=== PATIENT | male | born 1990 | race Hispanic/Latino ===

== ENCOUNTER 2019-01-30 21:25 | Emergency (ER) | payer OTHER ==
[2019-01-30] MEDS ORDERED: ACYCLOVIR 400 MG TABLET ONE (22:53)
--- NOTE | 2019-01-30 23:00 | ER ---
Nurse's Notes [facility] Name: Reno Sidhu Age: 28 yrs Sex: Male : 1990 Arrival Date: 01/30/2019 Time: : Bed 18 Private MD: Sylvia Wylie Diagnosis: Zoster [herpes zoster] Presentation: 01/30 21:47 Presenting complaint: Patient states: "I'm not sure if I was bit by something but the lp1 spot started last week and now it's spread and the pain is getting worse and radiating down to my calf"; Patient with red area to left thigh, itchy. Transition of care: patient was not received from another setting of care. Onset of symptoms was January 30, 2019. Risk Assessment: Do you want to hurt yourself or someone else? Patient reports no desire to harm self or others. Initial Sepsis Screen: Does the patient meet any 2 criteria? No. Patient's initial sepsis screen is negative. Does the patient have a suspected source of infection? No. Patient's initial sepsis screen is negative. Care prior to arrival: None. 21:47 Method Of Arrival: Ambulatory lp1 21:47 Acuity: CHAITANYA 4 lp1 Triage Assessment: 22:38 Bite description:. Bite description: bite sustained to left thigh by an unknown animal, cc3 animal information: vaccination(s) is unknown. General: Appears in no apparent distress. comfortable, Behavior is calm, cooperative, appropriate for age. Pain: Complains of pain in left thigh. EENT: No signs and/or symptoms were reported regarding the EENT system. Neuro: Level of Consciousness is awake, alert, obeys commands, Oriented to person, place, time, situation, Appropriate for age. Cardiovascular: Patient's skin is warm and dry. Respiratory: Airway is patent Respiratory effort is even, unlabored, Respiratory pattern is regular, symmetrical. GI: Abdomen is round. : No signs and/or symptoms were reported regarding the genitourinary system. Derm: Rash noted that is red, on left thigh. Musculoskeletal: Circulation, motion, and sensation intact. Range of motion: intact in all extremities. Historical: - Allergies: 21:48 No Known Allergies; lp1 - Home Meds: 21:48 None [Active]; lp1 - PMHx: 21:48 None; lp1 - PSHx: 21:48 None; lp1 - Immunization history:: Adult Immunizations up to date. - Social history:: Smoking status: Patient/guardian denies using tobacco. - Ebola Screening: : No symptoms or risks identified at this time. Screenin:49 Abuse screen: Denies threats or abuse. Denies injuries from another. Nutritional lp1 screening: No deficits noted. Tuberculosis screening: No symptoms or risk factors identified. Fall Risk None identified. Assessment: 22:39 Derm: Skin rash on the left thigh Skin is pink, warm \\T\\ dry. cc3 23:25 Reassessment: Patient appears in no apparent distress at this time. Patient and/or cc3 family updated on plan of care and expected duration. Pain level reassessed. Patient is alert, oriented x 3, equal unlabored respirations, skin warm/dry/pink. SAMM Franco discharged the patient home with prescription given. No IV cannula in situ. Patient left ER vitally stable and ambulatory with family. Patient denies pain at this time. Patient states feeling better. Vital Signs: 21:49 BP 126 / 64; Pulse 62; Resp 18; Temp 98.1(O); Pulse Ox 100% on R/A; Weight 79.38 kg; lp1 Height 5 ft. 7 in. (170.18 cm); Pain 8/10; 22:25 BP 125 / 67; Pulse 63; Resp 16 S; Pulse Ox 100% on R/A; cc3 23:18 BP 118 / 73; Pulse 61; Resp 15 S; Pulse Ox 100% on R/A; cc3 21:49 Body Mass Index 27.41 (79.38 kg, 170.18 cm) lp1 ED Course: 21:29 Patient arrived in ED. es 21:29 Sylvia Wylie MD is Private Physician. es 21:48 Triage completed. lp1 21:49 Arm band placed on left wrist. lp1 21:51 [facility] 21:51 Heath Jarrell MD is Attending Physician. [facility] 22:38 Ana Rawls is Primary Nurse. cc3 22:38 Patient has correct armband on for positive identification. Bed in low position. Call cc3 light in reach. Side rails up X 1. Pulse ox on. NIBP on. 22:59 Sylvia Wylie MD is Referral Physician. [facility] 23:25 No provider procedures requiring assistance completed. Patient did not have IV access cc3 during this emergency room visit. Administered Medications: 22:40 Drug: Acyclovir 800 mg Route: PO; cc3 23:15 Follow up: Response: No adverse reaction cc3 Outcome: 23:00 Discharge ordered by . [facility] 23:25 Discharged to home ambulatory, with family. cc3 23:25 Condition: stable 23:25 Discharge instructions given to patient, Instructed on discharge instructions, follow up and referral plans. medication usage, Demonstrated understanding of instructions, follow-up care, medications, Prescriptions given X 2. 23:27 Patient left the ED. cc3 Signatures: Bob Franco PA PA jmm Salyer, Edna es Pena, Laura, RN RN lp1 Ana Rawls cc3
--- NOTE | 2019-01-30 23:00 | EDPHYS ---
Physician Documentation [facility] Name: Reno Sidhu Age: 28 yrs Sex: Male : 1990 Arrival Date: 01/30/2019 Time: 21:29 Bed 18 Private MD: Sylvia Wylie ED Physician Heath Jarrell HPI: 01/30 22:30 This 28 yrs old Male presents to ER via Ambulatory with complaints of Insect jmm Bite. 22:30 The patient's rash thought to be caused by an unknown cause. Onset: The jmm symptoms/episode began/occurred gradually, 6 day(s) ago. Associated signs and symptoms: Pertinent positives: itching, Pain Pertinent negatives: fever. This is a 28 year old male with no chronic medical conditions that presents to the ED with complaints of rash and pain beginning approx 6 days ago. States he felt numbness in his thigh prior to rash appearing. Denies fever. Denies chills. . Historical: - Allergies: 21:48 No Known Allergies; lp1 - Home Meds: 21:48 None [Active]; lp1 - PMHx: 21:48 None; lp1 - PSHx: 21:48 None; lp1 - Immunization history:: Adult Immunizations up to date. - Social history:: Smoking status: Patient/guardian denies using tobacco. - Ebola Screening: : No symptoms or risks identified at this time. ROS: 22:30 Constitutional: Negative for fever, chills, and weight loss, Cardiovascular: Negative jmm for chest pain, palpitations, and edema, Respiratory: Negative for shortness of breath, cough, wheezing, and pleuritic chest pain. 22:30 MS/extremity: Positive for erythema, pain, rash. 22:30 Skin: Positive for rash. 22:30 All other systems are negative. Exam: 22:30 Constitutional: This is a well developed, well nourished patient who is awake, alert, jmm and in no acute distress. Head/Face: atraumatic. Eyes: EOMI, no conjunctival erythema appreciated ENT: Moist Mucus Membranes Neck: Trachea midline, Supple Chest/axilla: Normal chest wall appearance and motion. Cardiovascular: Regular rate and rhythm. No edema appreciated Respiratory: Normal respirations, no respiratory distress appreciated Abdomen/GI: Non distended, soft Back: Normal ROM 22:30 Musculoskeletal/extremity: no swelling is appreciated, compartments are soft, full dorsalis pulse, NVI. 22:30 Skin: vesicular lesions noted to the left lateral thigh, no induration is appreciated, no purulent drainage is appreciated. 22:30 Neuro: Orientation: is normal, Mentation: is normal, Memory: is normal. 22:30 Psych: Behavior/mood is pleasant, cooperative. Vital Signs: 21:49 BP 126 / 64; Pulse 62; Resp 18; Temp 98.1(O); Pulse Ox 100% on R/A; Weight 79.38 kg; lp1 Height 5 ft. 7 in. (170.18 cm); Pain 8/10; 22:25 BP 125 / 67; Pulse 63; Resp 16 S; Pulse Ox 100% on R/A; cc3 23:18 BP 118 / 73; Pulse 61; Resp 15 S; Pulse Ox 100% on R/A; cc3 21:49 Body Mass Index 27.41 (79.38 kg, 170.18 cm) lp1 MDM: 22:08 Patient medically screened. [facility] 22:59 Data reviewed: vital signs, nurses notes. Counseling: I had a detailed discussion with kris the patient and/or guardian regarding: the historical points, exam findings, and any diagnostic results supporting the discharge/admit diagnosis, the need for outpatient follow up, to return to the emergency department if symptoms worsen or persist or if there are any questions or concerns that arise at home. 22:59 ED course: PE findings appear consistent with herpetic lesions. No swelling is [facility] appreciated, to the leg. I do not suspect DVT. No induration is appreciated. I do not suspect cellulitis. . Administered Medications: 22:40 Drug: Acyclovir 800 mg Route: PO; cc3 23:15 Follow up: Response: No adverse reaction cc3 Disposition: 01/30/19 23:00 Discharged to Home. Impression: Zoster [herpes zoster]. - Condition is Stable. - Discharge Instructions: Shingles. - Prescriptions for Tylenol- Codeine #3 300-30 mg Oral Tablet - take 1 tablet by ORAL route every 6 hours As needed; 12 tablet. Acyclovir 800 mg Oral Tablet - take 1 tablet by ORAL route 5 times per day for 10 days; 50 tablet. - Medication Reconciliation Form, Thank You Letter, Antibiotic Education, Prescription Opioid Use form. - Follow up: Sylvia Wylie MD; When: 2 - 3 days; Reason: Recheck today's complaints, Continuance of care, Re-evaluation by your physician. Addendum: 02/01/2019 07:18 Co-signature as Attending Physician, Heath Jarrell MD I agree with the assessment and t w4 plan of care. Signatures: Bob Franco PA PA jmm Pena, Laura RN RN lp1 Heath Jarrell MD MD tw4 Ana Rawls cc3 Corrections: (The following items were deleted from the chart) 01/30 23:27 23:00 01/30/2019 23:00 Discharged to Home. Impression: Zoster [herpes zoster]. cc3 Condition is Stable. Forms are Medication Reconciliation Form, Thank You Letter, Antibiotic Education, Prescription Opioid Use. Follow up: Sylvia Wylie; When: 2 - 3 days; Reason: Recheck today's complaints, Continuance of care, Re-evaluation by your physician. kris
== END 2019-01-30 23:27 | disposition home or self-care (01) ==
LOC: ER 21:25
DX: B02.9 Zoster without complications (principal)

== ENCOUNTER 2019-01-31 20:37 | Emergency (ER) | payer OTHER ==
--- OUTSIDE RECORDS SUMMARY | 2019-01-31 20:40 | XMS REPORT ---
:1990 [facility] Address [address] [place] [address] [address] [address] Care Team Providers Name Role Phone Unavailable Unavailable Unavailable Problems This patient has no known problems. Allergies, Adverse Reactions, Alerts This patient has no known allergies or adverse reactions. Medications This patient has no known medications. Encounters Start End Encounter Admission Attending Care Care Encounter Date/Time Date/Time Type Type Clinicians Facility Department ID 2017-08-25 2017-08-25 Outpatient [facility] [id number] 00:00:00 00:00:00 2017-07-28 2017-07-28 Outpatient [facility] [id number] 13:01:25 13:01:
[2019-01-31] MEDS ORDERED: MORPHINE 4 MG/ML SYR ONE (21:48)
[2019-01-31] MEDS ORDERED: ONDANSETRON 4 MG (ODT) TAB ONE (21:48)
--- NOTE | 2019-01-31 22:12 | EDPHYS ---
Physician Documentation [facility] Name: Reno Sidhu Age: 28 yrs Sex: Male : 1990 Arrival Date: 01/31/2019 Time: 20:41 Bed 13 Private MD: Sylvia Wylie ED Physician Heath Jarrell HPI: 01/31 21:21 This 28 yrs old Male presents to ER via Ambulatory with complaints of rash. jmm 21:21 the patient presents with a swollen area of the left leg. jmm 21:21 Onset: The symptoms/episode began/occurred gradually. jmm 21:21 Possible cause(s): unknown. jmm 21:21 This is a 28 year old male that presents to the ED with complaints of worsening pain to jmm his left leg. Patient was diagnosed with shingles yesterday. Patient states prescribed pain medication is not helping. Denies fever. . Historical: - Allergies: 20:50 No Known Allergies; tl2 - Home Meds: 20:50 acyclovir 800 mg Oral tab 1 tab 5 times per day [Active]; tl2 - PMHx: 20:50 shingles; tl2 - PSHx: 20:50 None; tl2 - Immunization history:: Adult Immunizations up to date. - Social history:: Smoking status: Patient/guardian denies using tobacco. - Ebola Screening: : No symptoms or risks identified at this time. ROS: 21:21 Constitutional: Negative for fever, chills, and weight loss, Cardiovascular: Negative jmm for chest pain, palpitations, and edema, Respiratory: Negative for shortness of breath, cough, wheezing, and pleuritic chest pain. 21:21 MS/extremity: Positive for pain. 21:21 All other systems are negative. Exam: 21:21 Constitutional: This is a well developed, well nourished patient who is awake, alert, jmm and in no acute distress. Head/Face: atraumatic. Eyes: EOMI, no conjunctival erythema appreciated ENT: Moist Mucus Membranes Neck: Trachea midline, Supple Chest/axilla: Normal chest wall appearance and motion. Cardiovascular: Regular rate and rhythm. No edema appreciated Respiratory: Normal respirations, no respiratory distress appreciated Back: Normal ROM 21:21 Skin: vesicular lesions noted to the left thigh, TTP. No induration is appreciated. 21:21 Neuro: Orientation: is normal, Mentation: is normal, Memory: is normal. 21:21 Psych: Behavior/mood is pleasant, cooperative. Vital Signs: 20:50 BP 139 / 69; Pulse 87; Resp 18; Temp 98.9; Pulse Ox 100% on R/A; Weight 79.38 kg; tl2 Height 5 ft. 8 in. (172.72 cm); Pain 10/10; 21:41 BP 125 / 74; Pulse 69; Resp 16; Pulse Ox 100% on R/A; jb4 20:50 Body Mass Index 26.61 (79.38 kg, 172.72 cm) tl2 MDM: 21:21 Patient medically screened. [facility] 22:11 Data reviewed: vital signs, nurses notes. Counseling: I had a detailed discussion with roland the patient and/or guardian regarding: the historical points, exam findings, and any diagnostic results supporting the discharge/admit diagnosis, the need for outpatient follow up, to return to the emergency department if symptoms worsen or persist or if there are any questions or concerns that arise at home. 22:11 ED course: Patient is alert and non toxic in appearance. Rash does not appear [facility] significantly worse than yesterday's exam. Patient states feeling much better after administration of morphine. patient's pain medication was changed and is advised to follow up with pcp. patient was otherwise given strict return precautions. patient understood and agrees with the plan of care. . Administered Medications: 21:45 Drug: morphine 4 mg Route: IM; Site: right gluteus; jb4 22:26 Follow up: Response: Pain is decreased 21:45 Drug: Zofran 4 mg Route: PO; jb4 22:26 Follow up: Response: No adverse reaction bb Disposition: 01/31/19 22:11 Discharged to Home. Impression: Zoster [herpes zoster]. - Condition is Stable. - Discharge Instructions: Shingles. - Prescriptions for Tramadol 50 mg Oral Tablet - take 1 tablet by ORAL route every 8 hours as needed; 12 tablet. - Medication Reconciliation Form, Thank You Letter, Antibiotic Education, Prescription Opioid Use form. - Follow up: Sylvia Wylie MD; When: 2 - 3 days; Reason: Recheck today's complaints, Continuance of care, Re-evaluation by your physician. Signatures: Bob Franco PA PA jmm Ballard, Brenda, RN RN bb Suha Fletcher, RN RN tl2 Alexey Watkins, RN RN jb4 Corrections: (The following items were deleted from the chart) 22:27 22:11 01/31/2019 22:11 Discharged to Home. Impression: Zoster [herpes zoster]. bb Condition is Stable. Forms are Medication Reconciliation Form, Thank You Letter, Antibiotic Education, Prescription Opioid Use. Follow up: Sylvia Wylie; When: 2 - 3 days; Reason: Recheck today's complaints, Continuance of care, Re-evaluation by your physician. kris
--- NOTE | 2019-01-31 22:12 | ER ---
Nurse's Notes [facility] Name: Reno Sidhu Age: 28 yrs Sex: Male : 1990 Arrival Date: 01/31/2019 Time: 20:41 Bed 13 Private MD: Sylvia Wylie Diagnosis: Zoster [herpes zoster] Presentation: 01/31 20:48 Presenting complaint: Patient states: Was seen here last night, diagnosed with tl2 shingles. Pt states the rash has spread and the pain is increased. Transition of care: patient was not received from another setting of care. Onset of symptoms was January 30, 2019. Risk Assessment: Do you want to hurt yourself or someone else? Patient reports no desire to harm self or others. Initial Sepsis Screen: Does the patient meet any 2 criteria? No. Patient's initial sepsis screen is negative. Does the patient have a suspected source of infection? No. Patient's initial sepsis screen is negative. Care prior to arrival: None. 20:48 Method Of Arrival: Ambulatory tl2 20:48 Acuity: CHAITANYA 4 tl2 Triage Assessment: 20:50 General: Appears in no apparent distress. uncomfortable, Behavior is calm, cooperative, tl2 appropriate for age. Pain: Complains of pain in left leg, left side. Historical: - Allergies: 20:50 No Known Allergies; tl2 - Home Meds: 20:50 acyclovir 800 mg Oral tab 1 tab 5 times per day [Active]; tl2 - PMHx: 20:50 shingles; tl2 - PSHx: 20:50 None; tl2 - Immunization history:: Adult Immunizations up to date. - Social history:: Smoking status: Patient/guardian denies using tobacco. - Ebola Screening: : No symptoms or risks identified at this time. Screenin:25 Abuse screen: Denies threats or abuse. Nutritional screening: No deficits noted. jb4 Tuberculosis screening: No symptoms or risk factors identified. Fall Risk None identified. Assessment: 21:25 General: Appears in no apparent distress. uncomfortable, Behavior is calm, cooperative, jb4 appropriate for age. Pain: Complains of pain in anterior aspect of left lateral abdomen, lateral aspect of left thigh, left hamstring, medial aspect of left thigh and left quadriceps Pain does not radiate. Pain currently is 9 out of 10 on a pain scale. Quality of pain is described as sharp, tender, jolting, bruised Pain began 1 day ago. Neuro: Level of Consciousness is awake, alert, obeys commands, Oriented to person, place, time, situation. Cardiovascular: Patient's skin is warm and dry. Respiratory: Airway is patent Respiratory effort is even, unlabored, Respiratory pattern is regular, symmetrical. GI: : No signs and/or symptoms were reported regarding the genitourinary system. EENT: No signs and/or symptoms were reported regarding the EENT system. Derm: Skin is intact, Skin is pink, warm \T\ dry. Musculoskeletal: Circulation, motion, and sensation intact. Reports pain in anterior aspect of left lateral abdomen, lateral aspect of left thigh, left hamstring, medial aspect of left thigh and left quadriceps. 22:10 Reassessment: Patient appears in no apparent distress at this time. Patient and/or jb4 family updated on plan of care and expected duration. Pain level reassessed. Patient is alert, oriented x 3, equal unlabored respirations, skin warm/dry/pink. Patient states feeling better. 22:25 Reassessment: Patient and/or family updated on plan of care and expected duration. Pain bb level reassessed. Patient is alert, oriented x 3, equal unlabored respirations, skin warm/dry/pink. pt verbalized understanding of and agrees to plan of care discharge instructions given pt ambulated with steady gait to exit accompanied by family Patient states feeling better. Vital Signs: 20:50 BP 139 / 69; Pulse 87; Resp 18; Temp 98.9; Pulse Ox 100% on R/A; Weight 79.38 kg; tl2 Height 5 ft. 8 in. (172.72 cm); Pain 10/10; 21:41 BP 125 / 74; Pulse 69; Resp 16; Pulse Ox 100% on R/A; jb4 20:50 Body Mass Index 26.61 (79.38 kg, 172.72 cm) tl2 ED Course: 20:41 Patient arrived in ED. es 20:42 Sylvia Wylie MD is Private Physician. es 20:49 Triage completed. tl2 20:50 Arm band placed on right wrist. tl2 21:09 [facility] kris 21:09 Heath Jarrell MD is Attending Physician. kris 21:15 Alexey Watkins, RN is Primary Nurse. jb4 21:25 Patient has correct armband on for positive identification. Bed in low position. Call jb4 light in reach. Side rails up X 1. Pulse ox on. NIBP on. 22:11 Sylvia Wylie MD is Referral Physician. [facility] 22:27 No provider procedures requiring assistance completed. Patient did not have IV access bb during this emergency room visit. Administered Medications: 21:45 Drug: morphine 4 mg Route: IM; Site: right gluteus; jb4 22:26 Follow up: Response: Pain is decreased bb :45 Drug: Zofran 4 mg Route: PO; jb4 22:26 Follow up: Response: No adverse reaction bb Outcome: 22:11 Discharge ordered by . [facility] 22:26 Discharged to home ambulatory, with family. bb 22:26 Condition: stable 22:26 Discharge instructions given to patient, Instructed on discharge instructions, follow up and referral plans. medication usage, Demonstrated understanding of instructions, follow-up care, medications, Prescriptions given X 1. 22:27 Patient left the ED. bb Signatures: Bob Franco PA PA Jenny Bergeron Brenda, RN RN bb Suha Fletcher, RN RN tl2 Alexey Watkins, RN RN jb4
== END 2019-01-31 22:27 | disposition home or self-care (01) ==
LOC: ER 20:37
DX: B02.9 Zoster without complications (principal)

== ENCOUNTER 2019-03-20 16:15 | Emergency (ER) | payer OTHER ==
--- OUTSIDE RECORDS SUMMARY | 2019-03-20 16:29 | XMS REPORT ---
:1990 [facility] Address [address] [place] [address] [address] Care Team Providers Name Role Phone Unavailable Unavailable Unavailable Problems This patient has no known problems. Allergies, Adverse Reactions, Alerts This patient has no known allergies or adverse reactions. Medications This patient has no known medications. Encounters Start End Encounter Admission Attending Care Care Encounter Date/Time Date/Time Type Type Clinicians Facility Department ID 2017-08-25 2017-08-25 Outpatient [facility] [id number] 00:00:00 00:00:00 2017-07-28 2017-07-28 Outpatient [facility] [id number] 13:01:25 13:01:
--- OUTSIDE RECORDS SUMMARY | 2019-03-20 16:29 | XMS REPORT ---
:1990 Author Organization [employer] Care Team Providers Name Role Phone Robertoolegario Sylvia Provider Role Unavailable Allergies, Adverse Reactions, Alerts Substance Reaction Event Type N.K.D.A. Info Not Available Non Drug Allergy Problems Problem Type Condition Code Onset Dates Condition Status Problem Difficulty sleeping G47.9 Active Problem Herpes zoster without complication B02.9 Active Assessment Herpes zoster without complication B02.9 Active Assessment Follow-up exam Z09 Active Medications Medication Code Code Instructions Start End Date Status Dosage System Date Tramadol HCl [facility] 32733211419 50 MG Orally Active 1 tablet Three times a as needed day Vitamin D3 ND 59506020271 50,000 PO once a Active one tab week Gabapentin ND 01391615954 300 MG Orally February 06, Active 1 capsule Three times 2019 daily Acyclovir [facility] [id number] 800 mg Orally Active 1 tablet Five times a day x10 days Results No Known Results Summary Purpose [employer] Submission
[2019-03-20] MEDS ORDERED: TETANUS & DIPHTHERIA TOX,ADULT 0.5 ML VIAL ONE (17:25)
[2019-03-20] MEDS ORDERED: LIDOCAINE 1% W/EPI 1:100,000 MDV 50 ML VIAL ONE (17:26)
--- NOTE | 2019-03-20 17:34 | RAD REPORT ---
EXAM DESCRIPTION: RAD - Humerus Left - 03/20/2019 5:26 pm CLINICAL HISTORY: large laceration Pain and swelling COMPARISON: <Comparisons> FINDINGS: No fracture, dislocation or radiopaque foreign body.
--- NOTE | 2019-03-20 18:26 | EDPHYS ---
Physician Documentation [facility] Name: Reno Sidhu Age: 29 yrs Sex: Male : 1990 Arrival Date: 03/20/2019 Time: 16:17 Bed 11 Private MD: Sylvia Wylie ED Physician Alan Joy HPI: 03/20 16:30 This 29 yrs old Male presents to ER via Ambulatory with complaints of cp Laceration To Arm. 16:30 The patient has a laceration occurred at home. cp 16:30 The laceration(s) is(are) located on the left bicep. Onset: The symptoms/episode cp began/occurred just prior to arrival. Associated signs and symptoms: Pertinent positives: heavy bleeding, Pertinent negatives: weakness. Patient reports he was in swimming pool when arm struck piece of sharp metal. Historical: - Allergies: 16:22 No Known Allergies; bp - Home Meds: 16:22 None [Active]; bp - PMHx: 16:22 shingles; bp - Immunization history:: Adult Immunizations up to date, Last tetanus immunization: unknown. - Social history:: Smoking status: Patient/guardian denies using tobacco. - Ebola Screening: : No symptoms or risks identified at this time. ROS: 16:35 Constitutional: Negative for body aches, chills, fever, poor PO intake. cp 16:35 Eyes: Negative for injury, pain, redness, and discharge. cp 16:35 Cardiovascular: Negative for chest pain, palpitations. 16:35 Respiratory: Negative for cough, shortness of breath, wheezing. 16:35 Skin: Positive for laceration(s), of the left bicep. 16:35 Neuro: Negative for numbness, weakness. 16:35 All other systems are negative. Exam: 16:45 Constitutional: The patient appears in no acute distress, alert, awake, well developed, cp well nourished. 16:45 Head/Face: Normocephalic, atraumatic. cp 16:45 Skin: injury, laceration(s), the wound is approximately 7 cm(s), of the left bicep, cp that can be described as no foreign body, irregular, with moderate bleeding. 16:45 Musculoskeletal/extremity: ROM: full active range of motion, in the left arm, cp Perfusion: the extremity is normally perfused throughout, Sensation intact. Vital Signs: 16:22 BP 126 / 66; Pulse 68; Resp 18; Temp 98; Pulse Ox 100% ; Weight 81.65 kg; Height 5 ft. bp 7 in. (170.18 cm); 16:22 Body Mass Index 28.19 (81.65 kg, 170.18 cm) bp Laceration: 18:15 Wound Repair of 7cm ( 2.8in ) subcutaneous laceration to anterior aspect left upper cp arm. Irregularly shaped.. Distal neuro/vascular/tendon intact. Anesthesia: Wound infiltrated with 10 mls of 1% lidocaine w/ Epi. Wound prep: Moderate cleansing by me, Wound irrigation by me. Skin closed with 8 4-0 Prolene using horizontal mattress sutures. Dressed with Bacitracin, 4x4's, Kerlix. Patient tolerated well. MDM: 16:24 Patient medically screened. cp 17:00 Differential diagnosis: superficial laceration, tendon injury, vascular injury. cp 18:00 Test interpretation: by ED physician or midlevel provider: xray of left humerus cp negative for foreign body or fracture. 18:22 Data reviewed: vital signs, nurses notes, radiologic studies, plain films. cp 18:22 Test interpretation: by ED physician or midlevel provider: plain radiologic studies. cp Counseling: I had a detailed discussion with the patient and/or guardian regarding: the historical points, exam findings, and any diagnostic results supporting the discharge/admit diagnosis, radiology results, to return to the emergency department if symptoms worsen or persist or if there are any questions or concerns that arise at home. Response to treatment: the patient's symptoms have markedly improved after treatment, and as a result, I will discharge patient. 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 Exp: ss 12/24/2020. Lot #: [id number]. } Route: IM; Site: right deltoid; 18:39 Follow up: Response: No adverse reaction ss 17:24 Drug: Lidocaine-Epinephrine -1%: (1:100,000) 10 ml {Note: administered by jose guadalupe Cui to wound.} Volume: 20 ml; Route: Infiltration; Disposition: 18:40 Co-signature as Attending Physician, Alan Joy MD. rn Disposition: 03/20/19 18:23 Discharged to Home. Impression: Laceration without foreign body of left upper arm. - Condition is Stable. - Discharge Instructions: Laceration Care, Adult. - Prescriptions for Ibuprofen 800 mg Oral Tablet - take 1 tablet by ORAL route every 8 hours As needed take with food; 30 tablet. Keflex 500 mg Oral Capsule - take 1 capsule by ORAL route every 8 hours for 10 days; 30 capsule. - Medication Reconciliation Form, Thank You Letter, Antibiotic Education, Prescription Opioid Use form. - Follow up: Sylvia Wylie MD; When: 10 - 14 days; Reason: Staple/Suture removal. - Problem is new. - Symptoms have improved. Signatures: Dispatcher [employer] EDMS Alan Joy MD MD rn Smirch, Shelby, RN RN ss Page, Corey, PA PA cp Peltier, Brian, RN RN bp Corrections: (The following items were deleted from the chart) 18:39 18:23 03/20/2019 18:23 Discharged to Home. Impression: Laceration without foreign body ss of left upper arm. Condition is Stable. Forms are Medication Reconciliation Form, Thank You Letter, Antibiotic Education, Prescription Opioid Use. Follow up: Sylvia Wylie; When: 10 - 14 days; Reason: Staple/Suture removal. Problem is new. Symptoms have improved. cp
--- NOTE | 2019-03-20 18:26 | ER ---
Nurse's Notes [facility] Name: Reno Sidhu Age: 29 yrs Sex: Male : 1990 Arrival Date: 03/20/2019 Time: 16:17 Bed 11 Private MD: Sylvia Wylie Diagnosis: Laceration without foreign body of left upper arm Presentation: 03/20 16:20 Presenting complaint: Patient states: 25 MIN FIELD SPEC, CUT RIGHT BICEP AREA ON EDGE OF POOL, bp NOW WITH EXPOSED SUBQ AND MUSCLE FASCIA. NEUROMOTOR INTACT. Transition of care: patient was not received from another setting of care. Complicating Factors: WATER IMMERSION. Onset of symptoms was March 20, 2019 at 16:00. Risk Assessment: Do you want to hurt yourself or someone else? Patient reports no desire to harm self or others. Initial Sepsis Screen: Does the patient meet any 2 criteria? No. Patient's initial sepsis screen is negative. Does the patient have a suspected source of infection? No. Patient's initial sepsis screen is negative. Care prior to arrival: None. 16:20 Method Of Arrival: Ambulatory bp 16:20 Acuity: CHAITANYA 3 bp Triage Assessment: 16:22 General: Appears in no apparent distress. comfortable, well groomed, Behavior is bp cooperative, appropriate for age, anxious. Pain: Complains of pain in right antecubital area. EENT: No deficits noted. Neuro: No deficits noted. Cardiovascular: No deficits noted. Respiratory: No deficits noted. GI: No signs and/or symptoms were reported involving the gastrointestinal system. : No signs and/or symptoms were reported regarding the genitourinary system. Derm: No deficits noted. Musculoskeletal: Circulation, motion, and sensation intact. Range of motion: intact in all extremities. Injury Description: Laceration sustained to right antecubital area is 7.6 to 20 cm long, bleeding moderately, was sustained 30-60 minutes ago. is bleeding a small amount. Historical: - Allergies: 16:22 No Known Allergies; bp - Home Meds: 16:22 None [Active]; bp - PMHx: 16:22 shingles; bp - Immunization history:: Adult Immunizations up to date, Last tetanus immunization: unknown. - Social history:: Smoking status: Patient/guardian denies using tobacco. - Ebola Screening: : No symptoms or risks identified at this time. Screenin:24 Abuse screen: Denies threats or abuse. Denies injuries from another. Nutritional ss screening: No deficits noted. Tuberculosis screening: Never had TB. Fall Risk None identified. Assessment: 16:20 General: Appears in no apparent distress. comfortable, Behavior is calm, cooperative. ss Pain: Complains of pain in left bicep Pain currently is 4 out of 10 on a pain scale. Quality of pain is described as tender, Pain began 1 hour FIELD SPEC Is continuous. Neuro: Level of Consciousness is awake, alert, obeys commands. Respiratory: Airway is patent Respiratory effort is even, unlabored, Respiratory pattern is regular, symmetrical. Derm: Skin is intact, is healthy with good turgor, Skin is dry, Skin is pink, warm \T\ dry. normal. Musculoskeletal: Circulation, motion, and sensation intact. Range of motion: intact in all extremities, Swelling absent. Injury Description: Laceration sustained to left bicep is jagged, 2.6 to 7.5 cm long, was sustained 30-60 minutes ago. is bleeding a small amount. 17:24 Reassessment: Patient appears in no apparent distress at this time. Patient and/or ss family updated on plan of care and expected duration. Pain level reassessed. SAMM Cui at bedside performing wound care, pt tolerating well. Family member at bedside. 18:11 Reassessment: laceration repair almost complete, patient tolerating well. ss Vital Signs: 16:22 BP 126 / 66; Pulse 68; Resp 18; Temp 98; Pulse Ox 100% ; Weight 81.65 kg; Height 5 ft. bp 7 in. (170.18 cm); 16:22 Body Mass Index 28.19 (81.65 kg, 170.18 cm) bp ED Course: 16:17 Patient arrived in ED. mr 16:17 Sylvia Wylie MD is Private Physician. mr 16:19 Jarod Mayberry PA is PHCP. cp 16:19 Alan Joy MD is Attending Physician. cp 16:22 Triage completed. bp 16:24 Arm band placed on left wrist. bp 17:17 Mell Johnson, DONALDO is Primary Nurse. ss 17:24 Patient has correct armband on for positive identification. Bed in low position. Call ss light in reach. 17:24 Assist provider with laceration repair on left bicep that was between 2.6 to 7.5 cm ss using sutures. Set up tray. Performed by Jarod QUIJANO. 17:27 XRAY Humerus LEFT In Process Unspecified. EDMS 18:22 Sylvia Wylie MD is Referral Physician. cp 18:33 Assist provider with laceration repair Dressed with Patient tolerated well. Patient did ss not have IV access during this emergency room visit. Wound care: to laceration located on left bicep was cleaned with Betadine, irrigated with normal saline, dressed with Neosporin, 4X4s, Kerlix, Patient tolerated well. Administered Medications: 17:17 Drug: Tetanus-Diphtheria Toxoid Adult 0.5 ml {[employer]: [employer]. Exp: ss 12/24/2020. Lot #: [id number]. } Route: IM; Site: right deltoid; 18:39 Follow up: Response: No adverse reaction 17:24 Drug: Lidocaine-Epinephrine -1%: (1:100,000) 10 ml {Note: administered by jose guadalupe Cui to wound.} Volume: 20 ml; Route: Infiltration; Outcome: 18:23 Discharge ordered by MD. cp 18:34 Discharged to home ambulatory, with significant other. ss 18:34 Condition: good 18:34 Discharge instructions given to patient, significant other, Instructed on discharge instructions, follow up and referral plans. medication usage, wound care, Demonstrated understanding of instructions, follow-up care, medications, Prescriptions given X 2. 18:39 Patient left the ED. ss Signatures: Dispatcher [employer] [facility] Krysta Martin mr Mell Johnson RN RN Jarod Sales PA PA cp Peltier, Brian, RN RN bp Corrections: (The following items were deleted from the chart) 18:15 16:20 Injury Description: Laceration sustained to left bicep is jagged, 2.6 to 7.5 cm ss long, was sustained 30-60 minutes ago. is bleeding a small amount ss
== END 2019-03-20 18:39 | disposition home or self-care (01) ==
LOC: ER 16:15
PROC: 0JQF0ZZ Repair Left Upper Arm Subcutaneous Tissue and Fascia, Open Approach (ICD-10-PCS; principal; 2019-03-20)
DX: S46.222A Laceration of muscle, fascia and tendon of other parts of biceps, left arm, initial encounter (principal); W45.8XXA Other foreign body or object entering through skin, initial encounter; Y93.11 Activity, swimming; Y92.34 Swimming pool (public) as the place of occurrence of the external cause
CPT/HCPCS: 90471; 90714; 99284

== ENCOUNTER 2019-04-03 07:08 | Emergency (ER) | payer OTHER ==
--- OUTSIDE RECORDS SUMMARY | 2019-04-03 07:13 | XMS REPORT ---
[...] Date Status Dosage System Date Tramadol HCl [facility] 36216313373 50 MG Orally Active 1 tablet Three times a as needed day Vitamin D3 ND 86498083485 50,000 PO once a Active one tab week Gabapentin ND 46907618977 300 MG Orally February 06, Active 1 capsule Three times 2019 daily Acyclovir [facility] [id number] 800 mg Orally Active 1 tablet Five times a day x10 days Results No Known Results Summary Purpose eClinicalWorks Submission
--- OUTSIDE RECORDS SUMMARY | 2019-04-03 07:13 | XMS REPORT ---
:1990 [facility] Address [address] [place] [address] [address] Care Team Providers Name Role Phone Unavailable Unavailable Unavailable Problems This patient has no known problems. Allergies, Adverse Reactions, Alerts This patient has no known allergies or adverse reactions. Medications This patient has no known medications. Encounters Start End Encounter Admission Attending Care Care Encounter Date/Time Date/Time Type Type Clinicians Facility Department ID 2017-08-25 2017-08-25 Outpatient [facility] [id number] 00:00:00 00:00:00 2017-07-28 2017-07-28 Outpatient [facility] [id number] 13:01:25 13:01:
--- NOTE | 2019-04-03 07:34 | ER ---
Nurse's Notes [facility] Name: Reno Sidhu Age: 29 yrs Sex: Male : 1990 Arrival Date: 04/03/2019 Time: 07:12 Bed 12 Private MD: Diagnosis: Encounter for removal of sutures Presentation: 04/03 07:18 Presenting complaint: Patient states: Here to have sutures removed from L upper arm. Pt ss reports he had them placed 14 days ago. healing well. No redness or swelling noted. Transition of care: patient was not received from another setting of care. Onset of symptoms is unknown. Risk Assessment: Do you want to hurt yourself or someone else? Patient reports no desire to harm self or others. Initial Sepsis Screen: Does the patient meet any 2 criteria? No. Patient's initial sepsis screen is negative. Does the patient have a suspected source of infection? No. Patient's initial sepsis screen is negative. Care prior to arrival: None. 07:18 Method Of Arrival: Ambulatory ss 07:18 Acuity: CHAITANYA 5 ss Historical: - Allergies: 07:20 No Known Allergies; ss - PMHx: 07:20 shingles; ss - Immunization history:: Adult Immunizations up to date. - Social history:: Smoking status: Patient/guardian denies using tobacco. - Ebola Screening: : Patient denies exposure to infectious person Patient denies travel to an Ebola-affected area in the 21 days before illness onset. Screenin:21 Abuse screen: Denies threats or abuse. Denies injuries from another. Nutritional ss screening: No deficits noted. Tuberculosis screening: Never had TB. Fall Risk None identified. Assessment: 07:21 General: Appears in no apparent distress. comfortable, Behavior is calm, cooperative, ss Denies fever, feeling ill, fatigue, chills. Pain: Denies pain. Neuro: Level of Consciousness is awake, alert, obeys commands. Cardiovascular: Pulses are palpable in right radial artery and left radial artery. Respiratory: Airway is patent Respiratory effort is even, unlabored, Respiratory pattern is regular, symmetrical. EENT: Nares are clear Oral mucosa is moist. Derm: Skin is intact, is healthy with good turgor, Skin is dry, Skin is pink, warm \T\ dry. normal. Musculoskeletal: Circulation, motion, and sensation intact. Range of motion: intact in all extremities, Swelling absent. Vital Signs: 07:20 BP 134 / 61; Pulse 52; Resp 15; Temp 98.4(TE); Pulse Ox 97% on R/A; Pain 0/10; ss ED Course: 07:12 Patient arrived in ED. do 07:15 Marlo Burroughs PA is PHCP. jr8 07:15 Easton Dejesus MD is Attending Physician. jr8 07:20 Triage completed. ss 07:20 Arm band placed on right wrist. ss 07:21 Mell Johnson, RN is Primary Nurse. ss 07:21 Patient has correct armband on for positive identification. Bed in low position. Call ss light in reach. 07:22 No provider procedures requiring assistance completed. Patient did not have IV access ss during this emergency room visit. Removal of Removed sutures from left bicep Suture site is well healed Patient tolerated well. Administered Medications: No medications were administered Outcome: 07:22 No charge visit due to suture removal. ss 07:33 Discharge ordered by . jr8 07:42 Discharged to home ambulatory. ss 07:42 Condition: good 07:42 Instructed on discharge instructions, follow up and referral plans. wound care. 07:43 Patient left the ED. ss Signatures: Mell Johnson RN RN Marlo Burroughs PA PA jr8 Mariel Eli do
--- NOTE | 2019-04-03 07:34 | EDPHYS ---
Physician Documentation [facility] Name: Reno Sidhu Age: 29 yrs Sex: Male : 1990 Arrival Date: 04/03/2019 Time: 07:12 Bed 12 Private MD: ED Physician Easton Dejesus HPI: 04/03 07:31 This 29 yrs old Male presents to ER via Ambulatory with complaints of Suture jr8 Removal. 07:31 The patient has sutures on the left bicep. Previous treatment: The patient was jr8 initially treated 14 day(s) ago. Sutures/birdie progress: The patient has no c/o's. The wound is well-healing with no redness, swelling, discharge, or dehiscence reported. The patient has not experienced similar symptoms in the past. The patient has not recently seen a physician. Historical: - Allergies: 07:20 No Known Allergies; ss - PMHx: 07:20 shingles; ss - Immunization history:: Adult Immunizations up to date. - Social history:: Smoking status: Patient/guardian denies using tobacco. - Ebola Screening: : Patient denies exposure to infectious person Patient denies travel to an Ebola-affected area in the 21 days before illness onset. ROS: 07:31 Constitutional: Negative for fever, chills, and weight loss. jr8 07:31 Skin: Positive for laceration(s). 07:31 All other systems are negative. Exam: 07:31 Constitutional: This is a well developed, well nourished patient who is awake, alert, jr8 and in no acute distress. Cardiovascular: Regular rate and rhythm with a normal S1 and S2. No gallops, murmurs, or rubs. Normal PMI, no JVD. No pulse deficits. Respiratory: Lungs have equal breath sounds bilaterally, clear to auscultation and percussion. No rales, rhonchi or wheezes noted. No increased work of breathing, no retractions or nasal flaring. Abdomen/GI: Soft, non-tender, with normal bowel sounds. No distension or tympany. No guarding or rebound. No evidence of tenderness throughout. Back: No spinal tenderness. No costovertebral tenderness. Full range of motion. MS/ Extremity: Pulses equal, no cyanosis. Neurovascular intact. Full, normal range of motion. Neuro: Awake and alert, GCS 15, oriented to person, place, time, and situation. Cranial nerves II-XII grossly intact. Motor strength 5/5 in all extremities. Sensory grossly intact. Cerebellar exam normal. Normal gait. 07:31 Skin: Wound recheck: Suture laceration closure: the wound is healing well, the edges are well approximated, no evidence of dehiscence, no drainage, no erythema, no swelling. Vital Signs: 07:20 BP 134 / 61; Pulse 52; Resp 15; Temp 98.4(TE); Pulse Ox 97% on R/A; Pain 0/10; ss Procedures: 07:31 Suture/Staple removal: Removed 8 sutures, from left bicep, site appears well healed, jr8 Patient tolerated well. MDM: 07:15 Patient medically screened. jr8 07:31 Data reviewed: vital signs, nurses notes, and as a result, I will discharge patient. jr8 Data interpreted: Pulse oximetry: on room air is 97 %. Interpretation: normal. Counseling: I had a detailed discussion with the patient and/or guardian regarding: the historical points, exam findings, and any diagnostic results supporting the discharge/admit diagnosis, the need for outpatient follow up, a family practitioner, to return to the emergency department if symptoms worsen or persist or if there are any questions or concerns that arise at home. Administered Medications: No medications were administered Disposition: 04/04 06:58 Co-signature as Attending Physician, Easton Dejesus MD I agree with the assessment and ok plan of care. Disposition: 04/03/19 07:33 Discharged to Home. Impression: Encounter for removal of sutures. - Condition is Stable. - Discharge Instructions: Stitches, Birdie, or Adhesive Wound Closure, Suture Removal, Care After. - Medication Reconciliation Form, Thank You Letter, Antibiotic Education, Prescription Opioid Use form. - Follow up: Private Physician; When: As needed; Reason: Wound Recheck, Recheck today's complaints, Continuance of care, Re-evaluation by your physician. - Problem is new. - Symptoms have improved. Signatures: Mell Johnson RN RN Marlo Burroughs PA PA jr8 Easton Dejesus MD MD ok Corrections: (The following items were deleted from the chart) 04/03 07:43 07:33 04/03/2019 07:33 Discharged to Home. Impression: Encounter for removal of ss sutures. Condition is Stable. Forms are Medication Reconciliation Form, Thank You Letter, Antibiotic Education, Prescription Opioid Use. Follow up: Private Physician; When: As needed; Reason: Wound Recheck, Recheck today's complaints, Continuance of care, Re-evaluation by your physician. Problem is new. Symptoms have improved. jr8
== END 2019-04-03 07:43 | disposition home or self-care (01) ==
LOC: ER 07:08
DX: Z48.02 Encounter for removal of sutures (principal)

== ENCOUNTER 2019-09-12 19:48 | Emergency (ER) | payer OTHER, SELFPAY ==
--- OUTSIDE RECORDS SUMMARY | 2019-09-12 19:49 | XMS REPORT ---
:1990 [facility] Address [address] [place] [address] [address] Care Team Providers Name Role Phone Unavailable Unavailable Unavailable Problems This patient has no known problems. Allergies, Adverse Reactions, Alerts This patient has no known allergies or adverse reactions. Medications This patient has no known medications. Encounters Start End Encounter Admission Attending Care Care Encounter Date/Time Date/Time Type Type Clinicians Facility Department ID 2017-08-25 2017-08-25 Outpatient [facility] [id number] 00:00:00 00:00:00 2017-07-28 2017-07-28 Outpatient [facility] [id number] 13:01:25 13:01:
--- OUTSIDE RECORDS SUMMARY | 2019-09-12 19:50 | XMS REPORT ---
[...] Date Status Dosage System Date Tramadol HCl [facility] 67032111501 50 MG Orally Active 1 tablet Three times a as needed day Vitamin D3 ND 14038169139 50,000 PO once a Active one tab week Gabapentin ND 23258970800 300 MG Orally February 06, Active 1 capsule Three times 2019 daily Acyclovir [facility] 84561455574 800 mg Orally Active 1 tablet Five times a day x10 days Results No Known Results Summary Purpose eClinicalWorks Submission
--- NOTE | 2019-09-12 20:22 | ER ---
Nurse's Notes [facility] Name: Reno Sidhu Age: 29 yrs Sex: Male : 1990 Arrival Date: 09/12/2019 Time: 19:50 Bed 26 Private MD: Diagnosis: Viral syndrome;Shingles prodrome Presentation: 09/12 19:54 Presenting complaint: Patient states: "My back feels like a shingle outbreak is coming aj1 all along the middle of my spine is all tingly and when I lay down it hurts. I had shingles earlier this year on my thigh and the pain felt the same" Reports that his pain started Wednesday, when he was sick and running fever, states that fever has now resolved. Transition of care: patient was not received from another setting of care. Onset of symptoms was 2018. Risk Assessment: Do you want to hurt yourself or someone else? Patient reports no desire to harm self or others. Initial Sepsis Screen: Does the patient meet any 2 criteria? No. Patient's initial sepsis screen is negative. Does the patient have a suspected source of infection? No. Patient's initial sepsis screen is negative. Care prior to arrival: None. 19:54 Method Of Arrival: Ambulatory aj1 19:54 Acuity: CHAITANYA 4 aj1 Triage Assessment: 19:56 General: Appears in no apparent distress. comfortable, Behavior is calm, cooperative, aj1 appropriate for age. Pain: Complains of pain in thoracic area Pain currently is 6 out of 10 on a pain scale. at worst was 10 out of 10 on a pain scale. Neuro: Level of Consciousness is awake, alert, obeys commands, Oriented to person, place, time, situation. Cardiovascular: Patient's skin is warm and dry. Respiratory: Airway is patent Respiratory effort is even, unlabored, Respiratory pattern is regular, symmetrical. Musculoskeletal: Circulation, motion, and sensation intact. Historical: - Allergies: 19:56 No Known Allergies; aj1 - Home Meds: 19:56 None [Active]; aj1 - PMHx: 19:56 shingles; aj1 - PSHx: 19:56 None; aj1 - Immunization history:: Flu vaccine is not up to date. Adult Immunizations. - Social history:: Smoking status: Patient/guardian denies using tobacco. - Ebola Screening: : Patient denies travel to an Ebola-affected area in the 21 days before illness onset. Screenin:22 Abuse screen: Denies threats or abuse. Nutritional screening: No deficits noted. tr5 Tuberculosis screening: No symptoms or risk factors identified. Fall Risk None identified. Assessment: 20:22 General: Appears comfortable, Behavior is calm, cooperative, appropriate for age. Pain: tr5 Complains of pain in back. Neuro: Level of Consciousness is awake, alert, obeys commands, Oriented to person, place, time, Workers Compensation Consultant are equal bilaterally. Cardiovascular: Heart tones present Capillary refill < 3 seconds Pulses are all present. Respiratory: Airway is patent Respiratory effort is even, unlabored, Respiratory pattern is regular, symmetrical. GI: No signs and/or symptoms were reported involving the gastrointestinal system. : No signs and/or symptoms were reported regarding the genitourinary system. EENT: No signs and/or symptoms were reported regarding the EENT system. Derm: No signs and/or symptoms reported regarding the dermatologic system. Musculoskeletal: No signs and/or symptoms reported regarding the musculoskeletal system. Vital Signs: 19:56 BP 128 / 70; Pulse 67; Resp 18; Temp 97.6; Pulse Ox 100% on R/A; Weight 81.65 kg (R); aj1 Height 5 ft. 7 in. (170.18 cm) (R); Pain 6/10; 19:56 Body Mass Index 28.19 (81.65 kg, 170.18 cm) aj1 ED Course: 19:50 Patient arrived in ED. ds1 19:55 Triage completed. aj1 19:56 Arm band placed on Patient placed in an exam room. aj1 20:04 Binu Gardner MD is Attending Physician. ps1 20:21 Gerson López, DONALDO is Primary Nurse. tr5 20:22 Placed in gown. Bed in low position. Call light in reach. tr5 20:28 No provider procedures requiring assistance completed. Patient did not have IV access tr5 during this emergency room visit. Administered Medications: No medications were administered Outcome: 20:21 Discharge ordered by . ps1 20:28 Discharged to home ambulatory. tr5 20:28 Condition: stable 20:28 Discharge instructions given to patient, family, Instructed on discharge instructions, follow up and referral plans. medication usage, Demonstrated understanding of instructions, follow-up care, medications, Prescriptions given X 1. 20:30 Patient left the ED. tr5 Signatures: Kaitlyn Delong RN RN aj1 Re De La Cruz ds1 Binu Gardner MD MD ps1 Gerson López RN RN tr5
--- NOTE | 2019-09-12 20:22 | EDPHYS ---
Physician Documentation [facility] Name: Reno Sidhu Age: 29 yrs Sex: Male : 1990 Arrival Date: 09/12/2019 Time: 19:50 Bed 26 Private MD: ED Physician Binu Gardner HPI: 09/12 20:13 This 29 yrs old Male presents to ER via Ambulatory with complaints of Fever, ps1 Swelling behind Ear, Back Pain. 20:13 patient believes that he has shingles. Had an outbreak earlier in the year and had ps1 similar symptoms prior to outbreak> states that he has pain in the upper back on the right. Additionally has posterior cervical chain lymph nodes. Reports a fever earlier in the week. None now. . Historical: - Allergies: 19:56 No Known Allergies; aj1 - Home Meds: 19:56 None [Active]; aj1 - PMHx: 19:56 shingles; aj1 - PSHx: 19:56 None; aj1 - Immunization history:: Flu vaccine is not up to date. Adult Immunizations. - Social history:: Smoking status: Patient/guardian denies using tobacco. - Ebola Screening: : Patient denies travel to an Ebola-affected area in the 21 days before illness onset. ROS: 20:13 Eyes: Negative for injury, pain, redness, and discharge, ENT: Negative for injury, ps1 pain, and discharge, Cardiovascular: Negative for chest pain, palpitations, and edema, Respiratory: Negative for shortness of breath, cough, wheezing, and pleuritic chest pain, Abdomen/GI: Negative for abdominal pain, nausea, vomiting, diarrhea, and constipation, MS/Extremity: Negative for injury and deformity, Neuro: Negative for headache, weakness, numbness, tingling, and seizure. 20:13 Constitutional: Positive for fatigue, fever. 20:13 Skin: Positive for neuropathic pain upper back on right. . Exam: 20:13 Constitutional: This is a well developed, well nourished patient who is awake, alert, ps1 and in no acute distress. Head/Face: Normocephalic, atraumatic. Eyes: Pupils equal round and reactive to light, extra-ocular motions intact. Lids and lashes normal. Conjunctiva and sclera are non-icteric and not injected. Chest/axilla: Normal chest wall appearance and motion. Nontender with no deformity. No lesions are appreciated. Cardiovascular: Regular rate and rhythm. No gallops, murmurs, or rubs. Normal PMI, no JVD. No pulse deficits. Respiratory: Lungs have equal breath sounds bilaterally, clear to auscultation and percussion. No rales, rhonchi or wheezes noted. No increased work of breathing, no retractions or nasal flaring. Abdomen/GI: Soft, non-tender, with normal bowel sounds. No distension or tympany. No guarding or rebound. No evidence of tenderness throughout. MS/ Extremity: Pulses equal, no cyanosis. Neurovascular intact. Full, normal range of motion. Psych: Awake, alert, with orientation to person, place and time. Behavior, mood, and affect are within normal limits. 20:13 Neck: Lymph nodes: lymphadenopathy is appreciated, posterior cervical nodes. 20:13 Skin: Appearance: pain in right upper back. Vital Signs: 19:56 BP 128 / 70; Pulse 67; Resp 18; Temp 97.6; Pulse Ox 100% on R/A; Weight 81.65 kg (R); aj1 Height 5 ft. 7 in. (170.18 cm) (R); Pain 6/10; 19:56 Body Mass Index 28.19 (81.65 kg, 170.18 cm) aj1 MDM: 20:19 Data reviewed: vital signs, nurses notes, and as a result, I will discharge patient. ps1 Counseling: I had a detailed discussion with the patient and/or guardian regarding: the historical points, exam findings, and any diagnostic results supporting the discharge/admit diagnosis, to return to the emergency department if symptoms worsen or persist or if there are any questions or concerns that arise at home. ED course: Possible neuropathic prodrome of shingles. . 20:21 Patient medically screened. ps1 Administered Medications: No medications were administered Disposition: 09/12/19 20:21 Discharged to Home. Impression: Viral syndrome, Shingles prodrome. - Condition is Stable. - Discharge Instructions: Shingles, Infectious Mononucleosis, [id number]. - Prescriptions for Acyclovir 400 mg Oral Tablet - take 1 tablet by ORAL route every 8 hours; 30 tablet. - Medication Reconciliation Form, Thank You Letter, Antibiotic Education, Prescription Opioid Use form. - Follow up: Private Physician; When: As needed; Reason: Recheck today's complaints, Continuance of care, Re-evaluation by your physician. Follow up: Emergency Department; When: As needed; Reason: Fever > 102 F, Worsening of condition. - Problem is new. - Symptoms are unchanged. Signatures: Kaitlyn Delong RN RN aj1 Binu Gardner MD MD ps1 Gerson López RN RN tr5 Corrections: (The following items were deleted from the chart) 20:30 20:21 09/12/2019 20:21 Discharged to Home. Impression: Viral syndrome; Shingles tr5 prodrome. Condition is Stable. Forms are Medication Reconciliation Form, Thank You Letter, Antibiotic Education, Prescription Opioid Use. Follow up: Private Physician; When: As needed; Reason: Recheck today's complaints, Continuance of care, Re-evaluation by your physician. Follow up: Emergency Department; When: As needed; Reason: Fever > 102 F, Worsening of condition. Problem is new. Symptoms are unchanged. ps1
[2019-09-12 21:07] VITALS: BP 128/70; TEMP 97.6; O2SAT 100
== END 2019-09-12 20:30 | disposition home or self-care (01) ==
LOC: ER 19:48
DX: B34.9 Viral infection, unspecified (principal); B02.9 Zoster without complications
CPT/HCPCS: 99282

== ENCOUNTER 2021-10-17 17:51 | Emergency (ER) | payer OTHER ==
--- OUTSIDE RECORDS SUMMARY | 2021-10-17 17:54 | XMS REPORT | Continuity of Care Document ---
:1990 Author Organization [facility] Address [address] [place] [address] [address] [place] [address] Care Team Providers Name Role Phone Unavailable Unavailable Unavailable Problems Condition Condition Condition Status Onset Resolution Last Treating Co mments Source Name Details Category Date Date Treatment Clinician Date Difficulty Difficulty Problem Active [facility] sleeping [facility] Herpes Herpes Diagnosis Active [facility] complicati l on [facility]pat[facility] ent Clinics Follow-up Follow-up Diagnosis Active [facility] exam exam [facility] Allergies, Adverse Reactions, Alerts This patient has no known allergies or adverse reactions. Medications Ordered Filled Start Stop Current Ordering Indication Dosage Frequency Signature Comments Components Source Medication Medication Date Date Medication? Clinician (SIG) Name Name Gabapentin Gabapentin Yes Sylvia [address] [facility] Tramadol Tramadol Yes Sylvia [address] HCl HCl [facility] as needed [facility] Vitamin D3 Vitamin D3 Yes Sylvia one tab [facility] Acyclovir Acyclovir Yes Sylvia [address] [facility] Procedures This patient has no known procedures. Encounters Start End Encounter Admission Attending Care Care Encounter Source Date/Time Date/Time Type Type Clinicians Facility Department ID 2019-02-06 2019-02-06 [facility] [id number] [facility] [address] 11:20[facility]00 11:20:00 [facility] Medicine Outpati [facility] Clinics 2017-08-25 2017-08-25 Outpatient [facility] [id number] [address] [place] [address] 00:00:00 00:00:00 [facility] 2017-07-28 2017-07-28 Outpatient [facility] [id number] [address] [place] [address] 13:01:25 13:01:25 Health Results This patient has no known results.
[2021-10-17] MEDS ORDERED: ACETAMINOPHEN 500 MG TAB ONE (22:07)
[2021-10-17 22:27] LABS: Urine Blood Negative (Negative); Urine Glucose Negative (Negative); Urine Protein Negative (Negative); Urine Specific Gravity >=1.030 (1.005-1.030)
[2021-10-17 22:45] LABS: Lymphocytes % 39.9 % (15.3-44.8); MPV 9.1 fL (7.6-11.3); RBC Red Blood Cell Count 4.69 M/uL (4.33-5.43)
[2021-10-17 22:54] LABS: Protime INR 0.98
[2021-10-17 23:15] LABS: Barbiturates NEGATIVE (NEGATIVE); Benzodiazepines NEGATIVE (NEGATIVE); Cocaine NEGATIVE (NEGATIVE); METHAMPHETAM NEGATIVE (NEGATIVE); Methadone NEGATIVE (NEGATIVE); Opiates NEGATIVE (NEGATIVE); Phencyclidine NEGATIVE (NEGATIVE); THC Cannibis NEGATIVE (NEGATIVE)
[2021-10-17 23:18] LABS: SARS-COV-2 RT PCR NEGATIVE (NEGATIVE)
[2021-10-17 23:25] LABS: ALT/SGPT 49 U/L (12-78); AST/SGOT 28 U/L (15-37); Albumin 4.1 g/dL (3.4-5.0); Alkaline Phosphatase 88 U/L (45-117); BUN Blood Urea Nitrogen 17 mg/dL (7-18); Bicarbonate 28 mmol/L (21-32); Bilirubin Direct 0.1 mg/dL (0-0.2); Bilirubin Total 0.4 mg/dL (0.2-1.0); Glucose Level 95 mg/dL (74-106); Magnesium 2.1 mg/dL (1.8-2.4); NT PRO-BNP 9 pg/mL (<125); Potassium 3.6 mmol/L (3.5-5.1); Protein, Total 7.5 g/dL (6.4-8.2); Sodium Level 138 mmol/L (136-145)
--- NOTE | 2021-10-17 23:38 | ER ---
Nurse's Notes [facility] Name: Reno Sidhu Age: 31 yrs Sex: Male : 1990 Arrival Date: 10/17/2021 Time: 17:53 Bed 8 Private MD: Diagnosis: Chest pain, unspecified;Dyspnea, unspecified Presentation: 10/17 18:21 Chief complaint: Patient states: sob and tightness in chest x week. Coronavirus screen: vg1 Vaccine status: Patient reports being unvaccinated. Client denies travel out of the [place] in the last 14 days. Ebola Screen: Patient negative for fever greater than or equal to 101.5 degrees Fahrenheit, and additional compatible Ebola Virus Disease symptoms. Initial Sepsis Screen: Does the patient meet any 2 criteria? No. Patient's initial sepsis screen is negative. Does the patient have a suspected source of infection? No. Patient's initial sepsis screen is negative. Risk Assessment: Do you want to hurt yourself or someone else? Patient reports no desire to harm self or others. Onset of symptoms was October 10, 2021. 18:21 Method Of Arrival: Ambulatory vg1 18:21 Acuity: CHAITANYA 3 vg1 Triage Assessment: 18:24 General: Appears in no apparent distress. Behavior is calm, cooperative. Pain: Denies vg1 pain. Cardiovascular: Reports chest tightness. Respiratory: Reports shortness of breath Airway is patent. Historical: - Allergies: 18:24 No Known Allergies; vg1 - Home Meds: 18:24 None [Active]; vg1 - PMHx: 18:24 shingles; vg1 - PSHx: 18:24 None; vg1 - Immunization history:: Client reports having NOT received the Covid vaccine. - Social history:: Smoking status: Patient denies any tobacco usage or history of. Screenin:41 Abuse screen: Denies threats or abuse. Nutritional screening: No deficits noted. lg3 Tuberculosis screening: No symptoms or risk factors identified. Fall Risk None identified. Assessment: 21:41 General: Appears in no apparent distress. comfortable, Behavior is calm, cooperative. lg3 Pain: Complains of pain in chest Pain does not radiate. Pain currently is 4 out of 10 on a pain scale. Quality of pain is described as pressure, Pain began over 1 wk ago. Neuro: No deficits noted. Level of Consciousness is awake, alert, obeys commands, Oriented to person, place, time, situation. Cardiovascular: Capillary refill < 3 seconds JVD is absent Patient's skin is warm and dry. Respiratory: No deficits noted. Airway is patent Trachea midline Respiratory effort is even, unlabored, Respiratory pattern is regular, symmetrical. GI: Abdomen is flat, non-distended. : No deficits noted. No signs and/or symptoms were reported regarding the genitourinary system. EENT: No deficits noted. No signs and/or symptoms were reported regarding the EENT system. Derm: No deficits noted. No signs and/or symptoms reported regarding the dermatologic system. Skin is intact, is healthy with good turgor, Skin is dry. Musculoskeletal: No deficits noted. No signs and/or symptoms reported regarding the musculoskeletal system. Circulation, motion, and sensation intact. Range of motion: intact in all extremities. 23:29 Reassessment: Patient appears in no apparent distress at this time. No changes from lg3 previously documented assessment. Patient and/or family updated on plan of care and expected duration. Pain level reassessed. Patient is alert, oriented x 3, equal unlabored respirations, skin warm/dry/pink. Pain: Complains of pain in chest Pain currently is 2 out of 10 on a pain scale. Respiratory: No deficits noted. Airway is patent Trachea midline Respiratory effort is even, unlabored, Respiratory pattern is regular, symmetrical, Denies shortness of breath labored breathing. Vital Signs: 18:21 BP 127 / 72; Pulse 72; Resp 17; Temp 98.5; Pulse Ox 100% ; Weight 86.18 kg; Height 5 vg1 ft. 7 in. (170.18 cm); Pain 0/10; 22:31 BP 130 / 89; Pulse 56; Resp 18 S; Pulse Ox 96% on R/A; Pain 4/10; lg3 23:42 BP 122 / 74; Pulse 87; Resp 17; Pulse Ox 100% on R/A; Pain 2/10; lg3 18:21 Body Mass Index 29.76 (86.18 kg, 170.18 cm) vg1 ED Course: 17:53 Patient arrived in ED. mr 18:24 Triage completed. vg1 18:24 Arm band placed on. vg1 21:33 Amparo Malave, RN is Primary Nurse. lg3 21:41 Melchor Castro MD is Attending Physician. 7 21:41 Patient has correct armband on for positive identification. Bed in low position. Call lg3 light in reach. Side rails up X2. Pulse ox on. NIBP on. 21:41 Patient maintains SpO2 saturation greater than 95% on room air. lg3 22:18 COVID-19/FLU A+B (Document "Date of Onset" if Symptomatic) Sent. lg3 22:18 D-Dimer Sent. lg3 22:18 Basic Metabolic Panel Sent. lg3 22:19 CBC with Diff Sent. lg3 22:19 LFT's Sent. lg3 22:19 Magnesium Sent. lg3 22:19 NT PRO-BNP Sent. lg3 22:19 PT-INR Sent. lg3 22:19 Troponin HS Sent. lg3 22:29 UDS Sent. lg3 22:30 Inserted saline lock: 20 gauge in right antecubital area, using aseptic technique. lg3 Blood collected. 22:34 XRAY Chest (1 view) In Process Unspecified. EDMS 23:39 No provider procedures requiring assistance completed. IV discontinued, bleeding lg3 controlled, Pressure dressing applied. Administered Medications: 22:18 Drug: Tylenol 1000 mg Route: PO; lg3 22:18 Follow up: Response: No adverse reaction lg3 22:28 Follow up: Response: No adverse reaction lg3 Outcome: 23:37 Discharge ordered by . 7 23:39 Discharged to home ambulatory. lg3 23:39 Condition: stable 23:39 Discharge instructions given to patient, Prescriptions given X 1. 23:49 Patient left the ED. lg3 Signatures: Dispatcher [employer] [facility] Krysta Martin Lacie, RN RN lg3 Daniela Chiang RN RN vg1 Melchor Castro MD MD 7 Corrections: (The following items were deleted from the chart) 19:11 18:21 Acuity: CHAITANYA 2 vg1 vg1
--- NOTE | 2021-10-17 23:38 | EDPHYS ---
Physician Documentation [facility] Name: Reno Sidhu Age: 31 yrs Sex: Male : 1990 Arrival Date: 10/17/2021 Time: 17:53 Bed 8 Private MD: ED Physician Melchor Castro HPI: 10/17 22:06 This 31 yrs old Male presents to ER via Ambulatory with complaints of Chest mh7 Tightness, Shortness Of Breath. 22:06 The patient or guardian reports chest pain that is located primarily in the substernal mh7 area. The pain does not radiate. Associated signs and symptoms: Pertinent positives: shortness of breath, Pertinent negatives: abdominal pain, cough, diaphoresis, dizziness, headache, lower extremity pain, lower extremity swelling, lightheadedness, nausea, near syncope, palpitations, recent travel, syncope, vomiting. The chest pain is described as Tightness. Duration: The patient or guardian reports multiple episodes, that are intermittent, that wax and wane, with no pattern. Modifying factors: The symptoms are alleviated by nothing. the symptoms are aggravated by nothing. Severity of pain: At its worst the pain was moderate 4 day(s) ago, in the emergency department the pain has improved moderately. Historical: - Allergies: 18:24 No Known Allergies; vg1 - Home Meds: 18:24 None [Active]; vg1 - PMHx: 18:24 shingles; vg1 - PSHx: 18:24 None; vg1 - Immunization history:: Client reports having NOT received the Covid vaccine. - Social history:: Smoking status: Patient denies any tobacco usage or history of. ROS: 22:06 Constitutional: Negative for fever, chills, and weight loss, Eyes: Negative for injury, mh7 pain, redness, and discharge, ENT: Negative for injury, pain, and discharge, Neck: Negative for injury, pain, and swelling, Abdomen/GI: Negative for abdominal pain, nausea, vomiting, diarrhea, and constipation, Back: Negative for injury and pain, : Negative for injury, bleeding, discharge, and swelling, MS/Extremity: Negative for injury and deformity, Skin: Negative for injury, rash, and discoloration, Neuro: Negative for headache, weakness, numbness, tingling, and seizure, Psych: Negative for depression, anxiety, suicide ideation, homicidal ideation, and hallucinations, Allergy/Immunology: Negative for hives, rash, and allergies, Endocrine: Negative for neck swelling, polydipsia, polyuria, polyphagia, and marked weight changes, Hematologic/Lymphatic: Negative for swollen nodes, abnormal bleeding, and unusual bruising. Exam: 22:06 Constitutional: This is a well developed, well nourished patient who is awake, alert, mh7 and in no acute distress. Head/Face: Normocephalic, atraumatic. Eyes: Pupils equal round and reactive to light, extra-ocular motions intact. Lids and lashes normal. Conjunctiva and sclera are non-icteric and not injected. Cornea within normal limits. Periorbital areas with no swelling, redness, or edema. Neck: Trachea midline, no thyromegaly or masses palpated, and no cervical lymphadenopathy. Supple, full range of motion without nuchal rigidity, or vertebral point tenderness. No Meningismus. Chest/axilla: Normal chest wall appearance and motion. Nontender with no deformity. No lesions are appreciated. Cardiovascular: Regular rate and rhythm with a normal S1 and S2. No gallops, murmurs, or rubs. Normal PMI, no JVD. No pulse deficits. Respiratory: Lungs have equal breath sounds bilaterally, clear to auscultation and percussion. No rales, rhonchi or wheezes noted. No increased work of breathing, no retractions or nasal flaring. Abdomen/GI: Soft, non-tender, with normal bowel sounds. No distension or tympany. No guarding or rebound. No evidence of tenderness throughout. Back: No spinal tenderness. No costovertebral tenderness. Full range of motion. Skin: Warm, dry with normal turgor. Normal color with no rashes, no lesions, and no evidence of cellulitis. MS/ Extremity: Pulses equal, no cyanosis. Neurovascular intact. Full, normal range of motion. Neuro: Awake and alert, GCS 15, oriented to person, place, time, and situation. Cranial nerves II-XII grossly intact. Motor strength 5/5 in all extremities. Sensory grossly intact. Cerebellar exam normal. Normal gait. Psych: Awake, alert, with orientation to person, place and time. Behavior, mood, and affect are within normal limits. Vital Signs: 18:21 BP 127 / 72; Pulse 72; Resp 17; Temp 98.5; Pulse Ox 100% ; Weight 86.18 kg; Height 5 vg1 ft. 7 in. (170.18 cm); Pain 0/10; 22:31 BP 130 / 89; Pulse 56; Resp 18 S; Pulse Ox 96% on R/A; Pain 4/10; lg3 23:42 BP 122 / 74; Pulse 87; Resp 17; Pulse Ox 100% on R/A; Pain 2/10; lg3 18:21 Body Mass Index 29.76 (86.18 kg, 170.18 cm) vg1 MDM: 23:35 Differential diagnosis: acute myocardial infarction, acute pericarditis, anxiety, 7 coronary artery disease chest wall pain, congestive heart failure costochondritis, esophagitis, gastritis, gastroesophageal reflux disease (GERD), pericarditis, pleurisy, pneumonia, pneumothorax, pulmonary embolus. HEART Score: History: Slightly Suspicious (0), ECG: Normal (0), Age: < or = 45 years (0), Risk Factors: No Risk Factors Known (0), Troponin: < or = 1 x Normal Limit (0), Total Score = 0. Data reviewed: vital signs, nurses notes, lab test result(s), cardiac enzymes, CBC, electrolytes, urine drug screen, EKG, radiologic studies, plain films. Data interpreted: Pulse oximetry: on room air is 96 %. Interpretation: normal. Counseling: I had a detailed discussion with the patient and/or guardian regarding: the historical points, exam findings, and any diagnostic results supporting the discharge/admit diagnosis, lab results, radiology results, the need for outpatient follow up, to return to the emergency department if symptoms worsen or persist or if there are any questions or concerns that arise at home. Response to treatment: the patient's symptoms have resolved after treatment, the patient's blood pressure is in an acceptable range, mental status has returned to baseline, the patient no longer shows bradycardia, the patient is not short of breath, the patient is not tachycardic, the patient's pain is gone, the patient's temperature has normalized, patient is well hydrated. 23:37 Patient medically screened. [facility] 10/17 21:49 Order name: Basic Metabolic Panel; Complete Time: 23:26 [facility] 10/17 21:49 Order name: CBC with Diff; Complete Time: 23:03 [facility] 10/17 21:49 Order name: LFT's; Complete Time: 23:26 [facility] 10/17 21:49 Order name: Magnesium; Complete Time: 23: [facility] 10/17 21:49 Order name: NT PRO-BNP; Complete Time: 23:26 [facility] 10/17 21:49 Order name: PT-INR; Complete Time: 23:03 [facility] 10/17 21:49 Order name: Troponin HS; Complete Time: 23: [facility] 10/17 21:49 Order name: XRAY Chest (1 view) [facility] 10/17 21:49 Order name: EKG; Complete Time: 21:50 [facility] 10/17 21:50 Order name: UDS; Complete Time: 23: [facility] 10/17 21:50 Order name: D-Dimer; Complete Time: 23: [facility] 10/17 21:52 Order name: COVID-19/FLU A+B (Document "Date of Onset" if Symptomatic); Complete Time: [facility] 10/17 22:28 Order name: Urine Dipstick-Ancillary; Complete Time: 23:03 [facility] 10/17 21:49 Order name: Cardiac monitoring; Complete Time: 22:18 [facility] 10/17 21:49 Order name: EKG - Nurse/Tech; Complete Time: 22:18 [facility] 10/17 21:49 Order name: IV Saline Lock; Complete Time: 22:18 [facility] 10/17 21:49 Order name: Labs collected and sent; Complete Time: 22:18 [facility] 10/17 21:49 Order name: O2 Per Protocol; Complete Time: 22:18 [facility] 10/17 21:49 Order name: O2 Sat Monitoring; Complete Time: 22:18 [facility] 10/17 21:50 Order name: Urine Dipstick-Ancillary (obtain specimen); Complete Time: 22:29 [facility] Administered Medications: 22:18 Drug: Tylenol 1000 mg Route: PO; lg3 22:18 Follow up: Response: No adverse reaction lg3 22:28 Follow up: Response: No adverse reaction lg3 Disposition Summary: 10/17/21 23:37 Discharge Ordered Location: Home [facility] Problem: new [facility] Symptoms: have improved [facility] Condition: Stable [facility] Diagnosis - Chest pain, unspecified [facility] - Dyspnea, unspecified mh7 Followup: [facility] - With: Private Physician - When: 1 - 2 days - Reason: Worsening of condition, Recheck today's complaints, Continuance of care, Re-evaluation by your physician Discharge Instructions: - Discharge Summary Sheet [facility] - Shortness of Breath, Adult, [id number] [facility] - Nonspecific Chest Pain, Adult, [id number] [facility] Forms: - Medication Reconciliation Form [facility] - Thank You Letter [facility] - Antibiotic Education [facility] - Prescription Opioid Use [facility] Prescriptions: - albuterol sulfate 90 mcg/actuation Inhalation HFA aerosol inhaler - inhale 1 puff by INHALATION route every 4-6 hours As needed; 1 Inhaler; [facility] Refills: 0, Product Selection Permitted Signatures: Dispatcher [employer] Amparo Luz RN RN lg3 Daniela Chiang RN RN vg1 Melchor Castro MD MD [facility]
--- NOTE | 2021-10-18 08:08 | RAD REPORT ---
EXAM DESCRIPTION: RAD - Chest Single View - 10/17/2021 10:34 pm CLINICAL HISTORY: Chest pain;SOB COMPARISON: No comparisons FINDINGS: Lines: None. Lungs: No evidence of edema or pneumonia. Pleural: No significant pleural effusions or pneumothorax. Cardiac: The heart size is within normal limits. Bones: No acute fractures. Other: IMPRESSION: No acute cardiopulmonary disease.
== END 2021-10-17 23:49 | disposition home or self-care (01) ==
LOC: ER 17:51
DX: R07.9 Chest pain, unspecified (principal); R06.00 Dyspnea, unspecified; Z20.822 Contact with and (suspected) exposure to COVID-19
CPT/HCPCS: 93005; 85025; 80048; 36415; 83735; 85610; 85379; 80076; 81003; 84484; 83880; 0240U; 80307; 71045; 99284